=== PATIENT | male | born 1990 | race Hispanic/Latino ===

== ENCOUNTER 2018-09-05 14:19 | Emergency (ER) | payer BC ==
[2018-09-05 15:16] LABS: Absolute Lymphocytes (CBC) 1.5 K/uL (0.7-4.9); Absolute Monocytes 0.5 K/uL (0.1-1.3); Absolute Neutrophil 3.5 K/uL (1.8-8.0); Basophils % 0.5 % (0-1.3); Eosinophils % 2.2 % (0-4.4); Hematocrit 44.5 % (39.6-49.0); MCH 30.6 pg (27.0-35.0); MCV 89.1 fL (80-100); MPV 8.8 fL (7.6-11.3); Monocytes % 8.9 % (3.3-12.3)
[2018-09-05 15:51] LABS: Albumin 4.1 g/dL (3.4-5.0); Bilirubin Direct 0.1 mg/dL (0-0.2); Bilirubin Total 0.5 mg/dL (0.2-1.0); Potassium 3.6 mmol/L (3.5-5.1); Protein, Total 7.7 g/dL (6.4-8.2)
[2018-09-05] MEDS ORDERED: NA CHLORIDE 0.9% 1,000 ML ONE (16:07)
--- NOTE | 2018-09-05 16:23 | RAD REPORT ---
EXAM DESCRIPTION: CTAbdomen Pelvis W Contrast - 09/05/2018 4:14 pm CLINICAL HISTORY: Abdominal pain. iv contrast only;Abd pain COMPARISON: No comparisons TECHNIQUE: Biphasic CT imaging of the abdomen and pelvis was performed with 100 ml non-ionic IV cont rast. All CT scans are performed using dose optimization technique as appropriate and may include automated exposure control or mA/KV adjustment according to patient size. FINDINGS: The lung bases are clear. The liver, spleen, pancreas, adrenal glands and kidneys are within normal limits. No bowel obstruction, free air, free fluid or abscess. Small fat containing umbilical hernia. The jaime endix is normal. Few scattered colonic diverticula are seen. No evidence of diverticulitis. No eviden ce of significant lymphadenopathy. No suspicious bony findings. IMPRESSION: No acute intra-abdominal or pelvic finding.
--- NOTE | 2018-09-05 16:49 | ER ---
Nurse's Notes [facility] Name: Meño Mcmahan Age: 28 yrs Sex: Male : 1990 Arrival Date: 09/05/2018 Time: 14:25 Bed 16 Private MD: Diagnosis: Upper abdominal pain, unspecified;Diarrhea, unspecified Presentation: 09/05 14:27 Presenting complaint: Patient states: LUQ pain that began 3 days ago. Pt also reports aa5 nausea and diarrhea, denies vomiting. Transition of care: patient was not received from another setting of care. Onset of symptoms was August 2018. Risk Assessment: Do you want to hurt yourself or someone else? Patient reports no desire to harm self or others. Initial Sepsis Screen: Does the patient meet any 2 criteria? No. Patient's initial sepsis screen is negative. Does the patient have a suspected source of infection? No. Patient's initial sepsis screen is negative. Care prior to arrival: None. 14:27 Method Of Arrival: Ambulatory aa5 14:27 Acuity: MIRNA 3 aa5 Historical: - Allergies: 14:28 No Known Allergies; aa5 - PMHx: 14:28 None; aa5 - PSHx: 14:28 Vasectomy; aa5 - Immunization history:: Adult Immunizations up to date. - Social history:: Smoking status: Patient uses tobacco products, 2 cigarettes a day . - Ebola Screening: : No symptoms or risks identified at this time. Screenin:04 Abuse screen: Denies threats or abuse. Nutritional screening: No deficits noted. tw2 Tuberculosis screening: No symptoms or risk factors identified. Fall Risk None identified. Assessment: 15:02 General: Appears in no apparent distress. Behavior is calm, cooperative, appropriate tw2 for age. Pain: Complains of pain in left upper quadrant. Neuro: Level of Consciousness is awake, alert, obeys commands, Oriented to person, place, time, situation. Cardiovascular: Denies chest pain, shortness of breath, Heart tones S1 S2 Patient's skin is warm and dry. Respiratory: Airway is patent Respiratory effort is even, unlabored, Respiratory pattern is regular, symmetrical, Breath sounds are clear bilaterally. GI: Abdomen is flat, non-distended, Bowel sounds present X 4 quads. Abd is soft X 4 quads Reports upper abdominal pain, diarrhea, nausea. : No signs and/or symptoms were reported regarding the genitourinary system. EENT: No signs and/or symptoms were reported regarding the EENT system. Derm: No signs and/or symptoms reported regarding the dermatologic system. Musculoskeletal: Range of motion: intact in all extremities. 16:00 Reassessment: Patient appears in no apparent distress at this time. No changes from tw2 previously documented assessment. Patient and/or family updated on plan of care and expected duration. Pain level reassessed. Patient is alert, oriented x 3, equal unlabored respirations, skin warm/dry/pink. 16:51 Reassessment: Patient appears in no apparent distress at this time. No changes from tw2 previously documented assessment. Patient and/or family updated on plan of care and expected duration. Pain level reassessed. Patient is alert, oriented x 3, equal unlabored respirations, skin warm/dry/pink. 17:16 Reassessment: Patient appears in no apparent distress at this time. No changes from tw2 previously documented assessment. Patient and/or family updated on plan of care and expected duration. Pain level reassessed. Patient is alert, oriented x 3, equal unlabored respirations, skin warm/dry/pink. Vital Signs: 14:29 BP 119 / 65; Pulse 63; Resp 18 S; Temp 98.4(TE); Pulse Ox 97% on R/A; Weight 89.36 kg aa5 (R); Height 5 ft. 4 in. (162.56 cm) (R); Pain 6/10; 15:05 BP 109 / 62; Pulse 77; Resp 17; Pulse Ox 96% on R/A; tw2 16:50 BP 107 / 66; Pulse 60; Resp 17; Pulse Ox 97% on R/A; tw2 14:29 Body Mass Index 33.81 (89.36 kg, 162.56 cm) aa5 ED Course: 14:25 Patient arrived in ED. mr 14:28 Triage completed. aa5 14:28 Arm band placed on. aa5 14:29 Bed in low position. Call light in reach. Pulse ox on. NIBP on. tw2 14:30 Stephie Moctezuma RN is Primary Nurse. tw2 14:40 Kathy Carolina FNP-C [facility]. kb 14:40 Silvano Buckley MD is Attending Physician. kb 15:01 Initial lab(s) drawn, by ca, sent to lab. Inserted saline lock: 20 gauge in left [facility] antecubital area, using aseptic technique. Blood collected. 15:02 Basic Metabolic Panel Sent. 5 15:02 CBC with Diff Sent. [facility] 15:02 Hepatic Function Sent. [facility] 15:02 Lipase Sent. 5 16:07 Patient moved to [place] via wheelchair. vr 16:15 CT Abd/Pelvis - W/Contrast In Process Unspecified. EDMS 16:50 Awaiting: completion of IV fluids PRIOR to discharge. tw2 17:16 No provider procedures requiring assistance completed. IV discontinued, intact, tw2 bleeding controlled, No redness/swelling at site. Pressure dressing applied. Administered Medications: 16:03 Drug: NS 0.9% 1000 ml Route: IV; Rate: 1000 ml; Site: left antecubital; tw2 17:17 Follow up: Response: No adverse reaction; IV Status: Completed infusion; IV Intake: tw2 1000ml Intake: 17:17 IV: 1000ml; Total: 1000ml. tw2 Outcome: 16:49 Discharge ordered by . kb 17:16 Discharged to home ambulatory. tw2 17:16 Condition: stable 17:16 Discharge instructions given to patient, Instructed on discharge instructions, follow up and referral plans. no drinking with medication, no driving heavy equipment, medication usage, Demonstrated understanding of instructions, follow-up care, medications, Prescriptions given X 2. 17:17 Patient left the ED. tw2 Signatures: Dispatcher [employer] EDMS Kathy Carolina, ETL DATA ARCHITECTModestoC ETL DATA ARCHITECT-Vic WilliamaTamara mr CheKarla martinez RN RN [email or web address] Nara Pool Tara, RN RN [id number] Adelita Mora [facility] Corrections: (The following items were deleted from the chart) 14:29 14:28 Social history: Smoking status: Patient uses tobacco products, 2 cigarettes a day aaJose , aa5
--- NOTE | 2018-09-05 16:49 | EDPHYS ---
Physician Documentation [facility] Name: Meño Mcmahan Age: 28 yrs Sex: Male : 1990 Arrival Date: 09/05/2018 Time: 14:25 Bed 16 Private MD: ED Physician Silvano Buckley HPI: 09/05 16:48 This 28 yrs old Male presents to ER via Ambulatory with complaints of kb Abdominal Pain. 16:48 The patient presents with abdominal pain in the left upper quadrant. Onset: The kb symptoms/episode began/occurred 3 day(s) ago. The symptoms do not radiate. Associated signs and symptoms: Pertinent positives: diarrhea, nausea. The symptoms are described as constant. Modifying factors: The symptoms are alleviated by nothing, the symptoms are aggravated by pressure. Severity of pain: At its worst the pain was moderate in the emergency department the pain is unchanged. The patient has not experienced similar symptoms in the past. The patient has not recently seen a physician. Historical: - Allergies: 14:28 No Known Allergies; aa5 - PMHx: 14:28 None; aa5 - PSHx: 14:28 Vasectomy; aa5 - Immunization history:: Adult Immunizations up to date. - Social history:: Smoking status: Patient uses tobacco products, 2 cigarettes a day . - Ebola Screening: : No symptoms or risks identified at this time. ROS: 16:48 Constitutional: Negative for fever, chills, and weight loss, Cardiovascular: Negative kb for chest pain, palpitations, and edema, Respiratory: Negative for shortness of breath, cough, wheezing, and pleuritic chest pain, Back: Negative for injury and pain, : Negative for injury, bleeding, discharge, and swelling, MS/Extremity: Negative for injury and deformity, Skin: Negative for injury, rash, and discoloration, Neuro: Negative for headache, weakness, numbness, tingling, and seizure. 16:48 Abdomen/GI: Positive for abdominal pain, nausea, diarrhea, Negative for vomiting. Exam: 16:48 Constitutional: This is a well developed, well nourished patient who is awake, alert, kb and in no acute distress. Head/Face: Normocephalic, atraumatic. Chest/axilla: Normal chest wall appearance and motion. Nontender with no deformity. No lesions are appreciated. Cardiovascular: Regular rate and rhythm with a normal S1 and S2. No gallops, murmurs, or rubs. Normal PMI, no JVD. No pulse deficits. Respiratory: Lungs have equal breath sounds bilaterally, clear to auscultation and percussion. No rales, rhonchi or wheezes noted. No increased work of breathing, no retractions or nasal flaring. Back: No spinal tenderness. No costovertebral tenderness. Full range of motion. Skin: Warm, dry with normal turgor. Normal color with no rashes, no lesions, and no evidence of cellulitis. MS/ Extremity: Pulses equal, no cyanosis. Neurovascular intact. Full, normal range of motion. Neuro: Awake and alert, GCS 15, oriented to person, place, time, and situation. Cranial nerves II-XII grossly intact. Motor strength 5/5 in all extremities. Sensory grossly intact. Cerebellar exam normal. Normal gait. 16:48 Abdomen/GI: Inspection: abdomen appears normal, Bowel sounds: normal, in all quadrants, Palpation: soft, in all quadrants, mild abdominal tenderness, in the left upper quadrant. Vital Signs: 14:29 BP 119 / 65; Pulse 63; Resp 18 S; Temp 98.4(TE); Pulse Ox 97% on R/A; Weight 89.36 kg aa5 (R); Height 5 ft. 4 in. (162.56 cm) (R); Pain 6/10; 15:05 BP 109 / 62; Pulse 77; Resp 17; Pulse Ox 96% on R/A; tw2 16:50 BP 107 / 66; Pulse 60; Resp 17; Pulse Ox 97% on R/A; tw2 14:29 Body Mass Index 33.81 (89.36 kg, 162.56 cm) aa5 MDM: 14:40 Patient medically screened. kb 16:47 Data reviewed: vital signs, nurses notes. Data interpreted: Pulse oximetry: on room air kb is 96 %. Interpretation: normal. Counseling: I had a detailed discussion with the patient and/or guardian regarding: the historical points, exam findings, and any diagnostic results supporting the discharge/admit diagnosis, lab results, radiology results, the need for outpatient follow up, a family practitioner, to return to the emergency department if symptoms worsen or persist or if there are any questions or concerns that arise at home. 09/05 14:43 Order name: Basic Metabolic Panel; Complete Time: 15:53 kb 09/05 14:43 Order name: CBC with Diff; Complete Time: 15:28 kb 09/05 14:43 Order name: Hepatic Function; Complete Time: 15:53 kb 09/05 14:43 Order name: Lipase; Complete Time: 15:53 kb 09/05 15:56 Order name: CT Abd/Pelvis - W/Contrast; Complete Time: 16:47 kb 09/05 17:10 Order name: Urine Dipstick--Ancillary (enter results) bd 09/05 14:43 Order name: IV Saline Lock; Complete Time: 15:02 kb 09/05 14:43 Order name: Labs collected and sent; Complete Time: 15:02 kb Administered Medications: 16:03 Drug: NS 0.9% 1000 ml Route: IV; Rate: 1000 ml; Site: left antecubital; tw2 17:17 Follow up: Response: No adverse reaction; IV Status: Completed infusion; IV Intake: tw2 1000ml Disposition: 09/05/18 16:49 Discharged to Home. Impression: Upper abdominal pain, unspecified, Diarrhea, unspecified. - Condition is Stable. - Discharge Instructions: Abdominal Pain, Adult, [id number], Diarrhea, Adult, [id number]. - Prescriptions for Bentyl 20 mg Oral Tablet - take 1 tablet by ORAL route every 6 hours As needed; 20 tablet. Zofran 4 mg Oral Tablet - take 1 tablet by ORAL route every 6 hours As needed; 20 tablet. - Medication Reconciliation Form, Thank You Letter, Antibiotic Education, Prescription Opioid Use, Work release form form. - Follow up: Emergency Department; When: As needed; Reason: Worsening of condition. Follow up: Private Physician; When: 2 - 3 days; Reason: Recheck today's complaints, Continuance of care, Re-evaluation by your physician. Addendum: 09/07/2018 18:05 Co-signature as Attending Physician, Silvano Buckley MD. g s Signatures: Dispatcher [employer] Kathy Luna, YARDING ENGINEER-C YARDING ENGINEER-Karla Michelle, RN RN aa5 Stephie Moctezuma RN RN tw2 Silvano Buckley MD MD Corrections: (The following items were deleted from the chart) 09/05 14:29 14:28 Social history: Smoking status: Patient uses tobacco products, 2 cigarettes a day aa5 , aa5 17:17 16:49 09/05/2018 16:49 Discharged to Home. Impression: Upper abdominal pain, tw2 unspecified; Diarrhea, unspecified. Condition is Stable. Forms are Medication Reconciliation Form, Thank You Letter, Antibiotic Education, Prescription Opioid Use. Follow up: Emergency Department; When: As needed; Reason: Worsening of condition. Follow up: Private Physician; When: 2 - 3 days; Reason: Recheck today's complaints, Continuance of care, Re-evaluation by your physician. kb
[2018-09-05 17:28] VITALS: TEMP 98.4
[2018-09-05 17:30] VITALS: BP 107/66; O2SAT 97
[2018-09-05 18:05] LABS: Urine Blood NEGATIVE (NEG); Urine Glucose NEGATIVE (NEG); Urine Protein NEGATIVE (NEG); Urine pH 5.5 (5.0-7.0)
== END 2018-09-05 17:17 | disposition home or self-care (01) ==
LOC: ER 14:19
DX: R19.7 Diarrhea, unspecified (principal); F17.210 Nicotine dependence, cigarettes, uncomplicated
CPT/HCPCS: 36415; 74177; 80048; 80076; 81003; 83690; 85025; 96360; 99284; J7030; Q9967